=== PATIENT | male | born 1985 | race American Indian/Alaskan Native ===

== ENCOUNTER 2020-01-17 11:33 | Emergency (ER) | payer SELFPAY ==
[2020-01-17 12:23] VITALS: BP 131/71
--- NOTE | 2020-01-17 13:37 | Event Note ---
ED Screening Note ED Screening Note: 6 days ago began feeling a lump to the left buttock states has been using tea tree oil states then it came to a head and began using compresses states it opened and drained two days ago and he states he cleaned off tweezers and pulled the rest of the drainage out he states it has been improving but there is still an opening with small amount of drainage no fever, no vomiting, diarrhea, chills pmhx none no allergies to meds
--- NOTE | 2020-01-17 13:51 | Emergency Department Report ---
- General Chief complaint: Skin/Abscess/Foreign Body Stated complaint: LT BUTTOCK PAIN Time Seen by Provider: 01/17/20 13:24 Source: patient Mode of arrival: Ambulatory Limitations: No Limitations - History of Present Illness Initial comments: Patient is a 34-year-old male presents emergency room with complaints of a lump to the left buttock that began 6 days ago. He states that he began using tea tree oil and it came to ahead so he started using warm compresses. He states that then it opened and drained on its own 2 days ago and he states that he cleaned off a pair tweezers and pulled the rest of the drainage and purulent material out. He states that it has been improving but there is still an opening present with a small amount of drainage. He denies any fever, vomiting, diarrhea, chills. No past medical history. No allergies to medications. He denies getting bit by anything. He denies any abrasions. - Related Data Previous Rx's Medication Instructions Recorded Last Taken Type Mupirocin [Bactroban 2%] 1 applic TP TID #1 tube 01/17/20 Unknown Rx Sulfamethoxazole/Trimethoprim 1 each PO BID 7 Days #14 tablet 01/17/20 Unknown Rx [Bactrim DS TAB] Allergies Allergy/AdvReac Type Severity Reaction Status Date / Time No Known Allergies Allergy Unverified 01/17/20 12:22 Abscess Boil HPI - HPI Chief Complaint: Skin/Abscess/Foreign Body Stated Complaint: LT BUTTOCK PAIN Time Seen by Provider: 01/17/20 13:24 Home Medications: Previous Rx's Medication Instructions Recorded Last Taken Type Mupirocin [Bactroban 2%] 1 applic TP TID #1 tube 01/17/20 Unknown Rx Sulfamethoxazole/Trimethoprim 1 each PO BID 7 Days #14 tablet 01/17/20 Unknown Rx [Bactrim DS TAB] Allergies/Adverse Reactions: Allergies Allergy/AdvReac Type Severity Reaction Status Date / Time No Known Allergies Allergy Unverified 01/17/20 12:22 ED Review of Systems ROS: Stated complaint: LT BUTTOCK PAIN Other details as noted in HPI Comment: All other systems reviewed and negative ED Past Medical Hx - Past Medical History Previous Medical History?: No - Surgical History Past Surgical History?: No - Medications Home Medications: Home Medications Medication Instructions Recorded Confirmed Last Taken Type Mupirocin [Bactroban 2%] 1 applic TP TID #1 tube 01/17/20 Unknown Rx Sulfamethoxazole/Trimethoprim 1 each PO BID 7 Days #14 tablet 01/17/20 Unknown Rx [Bactrim DS TAB] ED Physical Exam - General Limitations: No Limitations General appearance: alert, in no apparent distress - Head Head exam: Present: atraumatic, normocephalic - Eye Eye exam: Present: normal appearance - ENT ENT exam: Present: mucous membranes moist - Respiratory Respiratory exam: Absent: respiratory distress, accessory muscle use - Neurological Exam Neurological exam: Present: alert, oriented X3 - Psychiatric Psychiatric exam: Present: normal affect, normal mood - Skin Skin exam: Present: warm, dry, other (1 cm circular opening present to the left buttock, small amount of blood/purulent drainage, mild surrounding erythema, no necrosis) ED Course Vital Signs 01/17/20 12:22 Temperature 98.4 F Pulse Rate 105 H Respiratory 19 Rate Blood Pressure 131/71 O2 Sat by Pulse 96 Oximetry ED Medical Decision Making - Medical Decision Making Patient is a 34-year-old male presents emergency room with complaints of a lump to the left buttock that began 6 days ago. He states that he began using tea tr ee oil and it came to ahead so he started using warm compresses. He states that then it opened and drained on its own 2 days ago and he states that he cleaned off a pair tweezers and pulled the rest of the drainage and purulent material out. He states that it has been improving but there is still an opening present with a small amount of drainage. He denies any fever, vomiting, diarrhea, chills. No past medical history. No allergies to medications. He denies getting bit by anything. He denies any abrasions. vss. on exam: 1 cm circular opening present to the left buttock, small amount of blood/purulent drainage, mild surrounding erythema, no necrosis. There is already an opening present with a small amount of drainage. There is mild surrounding cellulitis. Patient does not need I&D at there is already an opening present with most of the drainage removed. Patient given prescription for Bactrim and mupirocin ointment. Advised patient Please keep area clean, dry, covered. may wash with antibacterial soap and water and pat dry twice a day. please use medication as prescribed. no hot tub, no pool. follow up with a primary care doctor and have the area reevaluated in the next 3 days. return to the emergency room for any new or worsening symptoms. Critical care attestation.: If time is entered above; I have spent that time in minutes in the direct care of this critically ill patient, excluding procedure time. ED Disposition Clinical Impression: Abscess Cellulitis Qualifiers: Site of cellulitis: buttock Qualified Code(s): L03.317 - Cellulitis of buttock Disposition: DC- TO HOME OR SELFCARE Is pt being admited?: No Does the pt Need Aspirin: No Condition: Stable Instructions: Skin Abscess, Cellulitis, Adult Additional Instructions: Please keep area clean, dry, covered. may wash with antibacterial soap and water and pat dry twice a day. please use medication as prescribed. no hot tub, no pool. follow up with a primary care doctor and have the area reevaluated in the next 3 days. return to the emergency room for any new or worsening symptoms. Prescriptions: Sulfamethoxazole/Trimethoprim [Bactrim DS TAB] 1 each PO BID 7 Days #14 tablet Mupirocin [Bactroban 2%] 1 applic TP TID #1 tube Referrals: PRIMARY CAREMD [Primary Care Provider] - 2-3 Days ALESSANDRA HUERTA MD [Staff Physician] - 2-3 Days [facility] [Provider Group] - 2-3 Days [facility], [LAB/CONTRACT] - 2-3 Days Time of Disposition: 13:39 Print Language: UKRAINIAN
== END 2020-01-17 14:00 | disposition home or self-care (01) ==
LOC: ED 11:33
DX: L03.317 Cellulitis of buttock (principal)
CPT/HCPCS: 99281